=== PATIENT | male | born 1990 | race African-American/Black ===

== ENCOUNTER 2016-06-02 12:28 | Emergency (ER) | payer OTHER ==
[~2016-06-02] VITALS: Ht 177.8 cm; Wt 61.2 kg
[2016-06-02] MEDS ORDERED: IBUPROFEN 600 MG TABLET. PO ONE (13:00)
[2016-06-02 13:11] LABS: INFLUENZA A PATIENT NEGATIVE (NEGATIVE); INFLUENZA B PATIENT NEGATIVE (NEGATIVE)
[2016-06-02] MEDS ORDERED: GUAI118L13 PO (13:23)
[2016-06-02] MEDS ORDERED: SULF1TAB24 PO (13:23)
--- NOTE | 2016-06-02 13:24 | PHYS DOC ---
General Chief Complaint: FEVER Stated Complaint: FEVER Time Seen by MD: 13:07 Source: patient Exam Limitations: no limitations Problems: History of Present Illness Initial Comments Pt is 26/M to ED c/o fever. Pt states for the past three days he's had nasal congestion, facial pain, dry cough, RICKS and body aches. He's had chills and sweats, generalized malaise, and pain with deep breaths. No n/v/d, no known contacts with similar sx. No prearrival treatment, no SOB. Pt is smoker. Timing/Duration: getting worse (3 days) Severity: moderate Modifying Factors: improves with medication, improves with rest Associated Symptoms: chest pain, cough, diaphoresis, fever/chills, headaches, malaise, other Allergies: Coded Allergies: No Known Drug Allergies (Unverified , 06/02/16) Past Medical History Medical History: no pertinent history Surgical History: noncontributory Social History Smoker: cigarettes Alcohol: none Drugs: none Review of Systems Constitutional: see HPI EENTM: denies eye pain, denies ear pain, nose congestiondenies throat pain, denies throat swelling Respiratory: coughdenies shortness of breath, denies wheezing Cardiovascular: chest paindenies palpitations, denies syncope Gastrointestinal: denies abdominal pain, denies diarrhea, denies nausea, denies vomiting Musculoskeletal: see HPIdenies joint swelling, denies neck pain Psychiatric/Neurological: headachedenies numbness, denies paresthesia, denies weakness Physical Exam General Appearance: WD/WN, no apparent distress (febrile) Eyes: bilateral eye EOMI, bilateral eye PERRL, bilateral eye normal inspection Ear, Nose, Throat: hearing grossly normal, normal ENT inspection (green nasal/ PND), normal pharynx Neck: non-tender, supple Respiratory: normal breath sounds, no respiratory distress Cardiovascular: normal peripheral pulses, other (tachy 103bpm) Gastrointestinal: non tender, soft Back: no CVA tenderness, no vertebral tenderness Extremities: non-tender, normal inspection 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 HR normalizes to around 100bpm at rest, increases to 110's with exertion. Pt looks good, lungs clear, no PE risks. I feel he's stable for discharge at this point. Will treat with bactrim ds, aggressive hydration, and symptom control. Advised to stop smoking, return to ED as needed. Departure Time of Disposition: 13:24 Disposition: 01 HOME, SELF-CARE Diagnosis: Upper Respiratory Infection, Tobaccoism, Febrile I Condition: STABLE Patient Instructions: Fever, Adult, [id number], Smoking, You Can Quit, Easy- to-Read, Upper Respiratory Infection, Adult, [id number] Additional Instructions: Off work thru /6. Stop smoking, seek medical assistance if necessary. Aggressive hydration with gatorade, water. OTC ibuprofen for baseline discomfort. Rx: bactrim ds, guaifenesin/codeine syrup Use albuterol inhaler with spacer: 2 puffs every 4 hours and as needed. You will need to follow up with a primary care physician. If you do not have one, ED staff can provide a list of local doctors accepting new patients--some with walk-in hours. Call today to schedule follow up appointment for 1-2 weeks. Return to ED with new or changing symptoms. JELENA CARDOZA DO Jun 02, 2016 13:23
[2016-06-02] MEDS ORDERED: SMZ/TMP 800/160MG TABLET. PO ONE (13:45)
[2016-06-02] MEDS ORDERED: ALBUTEROL SULFATE 8GM INHALER. INH ONE (13:45)
[2016-06-02] MEDS ORDERED: ONDANSETRON ODT 4 MG TAB.RAPDIS PO ONE (13:45)
[2016-06-02] MEDS ORDERED: GUAIFENESIN/CODEINE 100mg/10mg 5 ML LIQUID. PO ONE (13:45)
[2016-06-02 13:48] VITALS: BP 117/66
== END 2016-06-02 13:50 | disposition home or self-care (01) ==
LOC: ER 12:28
DX: J06.9 Acute upper respiratory infection, unspecified (principal); F17.210 Nicotine dependence, cigarettes, uncomplicated; R00.0 Tachycardia, unspecified
CPT/HCPCS: 87804; 94640; 99284; J7613; Q0162

== ENCOUNTER 2016-07-09 13:50 | Emergency (ER) | payer OTHER ==
[~2016-07-09 13:50] MED LIST: GUAI118L13 PO; SULF1TAB24 PO
--- NOTE | 2016-07-09 14:16 | PHYS DOC ---
Past History Past Medical History: No Pertinent History Past Surgical History: Other Alcohol Use: Heavy Additional Alcohol Information: / pint nightly Drug Use: Marijuana Adult General Chief Complaint Chief Complaint: HAND injury HPI HPI Patient is a 26-year-old right-handed male who presents with an injury to his right hand. He states last night he was punching stuff, he might have punched a door, and today his right hand has swelling and pain. It hurts to move his index finger and middle finger and he cannot straighten them out. Patient adamantly denies punching anyone in the mouth. Last tetanus unknown. He does not have chronic medical problems and does not have a primary care doctor. Review of Systems Review of Systems Constitutional: Denies fever or chills [] GI: Denies nausea, vomiting, Musculoskeletal: Denies any other injury Allergies Allergies Allergies Coded Allergies Type Severity Reaction Last Updated Verified No Known Drug Allergies 06/02/16 No Physical Exam Physical Exam Constitutional: Well developed, well nourished, no acute distress, non-toxic appearance. Alert, mentating normally. HENT: Normocephalic, atraumatic, bilateral external ears normal, nose normal. [ ] Eyes: conjunctiva normal, no discharge. [] Neck: Normal range of motion, no stridor. [] Skin: Warm, dry, no erythema, no rash. [] Extremities: Left hand and injured. Right hand has a relatively superficial linear horizontal laceration over the second MCP and a smaller abrasion over the third MCP. Second MCP has moderate redness and swelling. When patient attempts to extend his fingers, he is not able to extend his in and third digit due to pain. Neurologic: Alert and oriented X 3, normal motor function, normal sensory function, no focal deficits noted. [] Current Patient Data Vital Signs Vital Signs Date Time Temp Pulse Resp B/P (MAP) Pulse Ox O2 Delivery O2 Flow Rate FiO2 07/09/16 13:50 98.3 116 18 99 Room Air EKG EKG [] Radiology/Procedures Radiology/Procedures [] Course & Med Decision Making Course & Med Decision Making Pertinent Labs and Imaging studies reviewed. (See chart for details) 26-year-old male presents with redness and swelling of the right hand with a laceration over the second MCP that looks suspicious for a tooth injury. The patient denies contact with a tooth. I advised the patient we will get x-rays and give him a tetanus shot and he is agreeable to that plan. X-rays read by me, no bony abnormality. I discussed with the patient and female significant other that I recommend cleaning, splinting, explained the reason for that, antibiotics. I recommended first dose of IV antibiotics but the patient declined to that, he does not like needles and would prefer to take a pill. I explained the reasoning that he needs to be rechecked in 1-2 days in the fourth and clinic, gave him the phone number to do that. [] Dragon Disclaimer Dragon Disclaimer This chart was dictated in whole or in part using Voice Recognition software in a busy, high-work load, and often noisy Emergency Department environment. It may contain unintended and wholly unrecognized errors or omissions. Departure Departure: Impression: Primary Impression: Cellulitis of right hand Disposition: HOME, SELF-CARE Condition: STABLE Referrals: PCP,HENRI (PCP) MALVIN MACIAS MD Patient Instructions: Cellulitis, [id number] Additional Instructions: As we discussed, you have an infection of your hand. The infection is called cellulitis which means skin infection. You had your first dose of antibiotics in the emergency department. You need to take one pill twice a day, next dose is due at bedtime tonight. Leave the dressing on and elevate as much as possible to help reduce the swelling. Call today for appointment for recheck and orthopedic clinic tomorrow or Thursday. It's very important that you have a recheck because we want to make sure the infection is not getting worse. If the infection gets worse, you may have to be admitted to the hospital for IV antibiotics. If needed for pain, ibuprofen [id number] 2-3 every 4-6 hours as needed. You did have a tetanus shot today so you are good for 5 years on that. Scripts Amoxicillin/Potassium Clav (AUGMENTIN 875-125 TABLET) 1 Each Tablet 1 TAB PO BID, #20 TAB Prov: KVNG THOMAS MD 07/09/16 KVNG THOMAS MD July 09, 2016 14:16
--- NOTE | 2016-07-09 14:26 | RAD ---
Indication: Right hand injury with pain and swelling. Time of exam 1018 hours. The metacarpals are intact. The phalanges appear intact. No fractures are seen. The carpus is unremarkable. Impression: No acute bony abnormality is detected.
[2016-07-09] MEDS ORDERED: DIPHTH,PERTUSS(ACELL),TET TOX 0.5 ML DISP.SYRIN. VAX IM ONE (14:30)
[2016-07-09] MEDS ORDERED: AMOXICILLIN/K CLAV 875/125MG TABLET. PO ONE (14:45)
[2016-07-09] MEDS ORDERED: AMOX1TAB61 PO (14:49)
[2016-07-09 14:59] VITALS: BP 114/76
== END 2016-07-09 15:01 | disposition home or self-care (01) ==
LOC: ER 13:50
DX: L03.113 Cellulitis of right upper limb (principal); S61.210A Laceration without foreign body of right index finger without damage to nail, initial encounter; F12.10 Cannabis abuse, uncomplicated; F10.10 Alcohol abuse, uncomplicated; F17.200 Nicotine dependence, unspecified, uncomplicated; X58.XXXA Exposure to other specified factors, initial encounter; Y93.89 Activity, other specified; Y99.8 Other external cause status; Y92.89 Other specified places as the place of occurrence of the external cause
CPT/HCPCS: 73130; 90471; 90715; 99284-25